=== PATIENT | female | born 1970 | race Caucasian/White ===

== ENCOUNTER 2017-05-18 11:49 | Emergency (ER) | payer OTHER ==
[~2017-05-18] VITALS: Ht 170.2 cm; Wt 49.9 kg
[2017-05-18] MEDS ORDERED: DICLOFENAC SODI50 MG PO (15:22)
== END 2017-05-18 16:00 | disposition home or self-care (01) ==
LOC: ER 11:49
DX: M94.0 Chondrocostal junction syndrome [Tietze] (principal)

== ENCOUNTER 2018-01-04 10:03 | Emergency (ER) | payer OTHER ==
[~2018-01-04] VITALS: Ht 170.2 cm; Wt 48.5 kg
== END 2018-01-04 13:09 | disposition home or self-care (01) ==
LOC: ER 10:03
DX: N39.0 Urinary tract infection, site not specified (principal)